=== PATIENT | male | born 1990 | race Caucasian/White ===

== ENCOUNTER 2018-09-23 09:30 | Emergency (ER) | payer MEDICARE, OTHER ==
[~2018-09-23] VITALS: Ht 172.7 cm; Wt 81.8 kg
[2018-09-23] MEDS ORDERED: LIDOCAINE/PF 1% 2 ML VIAL IM ONE (10:15)
[2018-09-23] MEDS ORDERED: CefTRIAXone SODIUM 1 GM/VIAL IM ONE (10:15)
[2018-09-23] MEDS ORDERED: AZITHROMYCIN 250 MG TABLET PO ONE (10:15)
[2018-09-23 13:20] VITALS: BP 120/41
== END 2018-09-23 13:21 | disposition home or self-care (01) ==
LOC: EMS 09:31
DX: A57 Chancroid (principal); N34.2 Other urethritis
CPT/HCPCS: 96372; 99283; J0696; J3490

== ENCOUNTER 2019-04-04 21:17 | Emergency (ER) | payer MEDICARE, OTHER ==
[~2019-04-04] VITALS: Ht 175.3 cm; Wt 81.8 kg
[2019-04-04] MEDS ORDERED: SILVER SULFADIAZINE 1% 25 GM CREAM TP ONE (23:00)
[2019-04-04] MEDS ORDERED: SULFAMETHOX/TRIMETH DS 800-160 MG/TABLET PO ONE (23:30)
[2019-04-04 23:35] VITALS: BP 135/64
== END 2019-04-05 00:17 | disposition home or self-care (01) ==
LOC: EMS 21:19
DX: L55.1 Sunburn of second degree (principal); F15.90 Other stimulant use, unspecified, uncomplicated
CPT/HCPCS: 16020

== ENCOUNTER 2019-09-22 11:57 | Emergency (ER) | payer MEDICARE, OTHER ==
[~2019-09-22] VITALS: Ht 177.8 cm; Wt 180.0 kg
[2019-09-22] MEDS ORDERED: CefTRIAXone SODIUM 1 GM/VIAL IM ONE (14:15)
[2019-09-22] MEDS ORDERED: LIDOCAINE/PF 1% 2 ML VIAL IM ONE (14:15)
[2019-09-22] MEDS ORDERED: IBUPROFEN 800 MG TABLET PO ONE (14:15)
[2019-09-22] MEDS ORDERED: SULFAMETHOX/TRIMETH DS 800-160 MG/TABLET PO ONE (14:15)
[2019-09-22 16:04] VITALS: BP 144/84
== END 2019-09-22 16:17 | disposition home or self-care (01) ==
LOC: EMS 11:58
DX: L02.512 Cutaneous abscess of left hand (principal); F11.90 Opioid use, unspecified, uncomplicated; F15.90 Other stimulant use, unspecified, uncomplicated; F17.210 Nicotine dependence, cigarettes, uncomplicated
CPT/HCPCS: 96372; 99283; 99406; J0696; J3490

== ENCOUNTER 2019-11-01 00:05 | Emergency (ER) | payer MEDICARE, OTHER ==
[~2019-11-01] VITALS: Ht 177.8 cm; Wt 77.3 kg
[2019-11-01] MEDS ORDERED: LIDOCAINE 1% 10 ML VIAL INJ ONE (03:00)
[2019-11-01] MEDS ORDERED: POVIDONE-IODINE 10% 120 ML SOLUTION TP ONE (03:03)
[2019-11-01 04:00] VITALS: BP 123/72
[2019-11-01] MEDS ORDERED: SULFAMETHOX/TRIMETH DS 800-160 MG/TABLET PO ONE (04:00)
[2019-11-01] MEDS ORDERED: PERTUSS(ACELL),DIPH,TET VAC/PF 0.5 ML VIAL IM ONE (04:00)
[2019-11-01] MEDS ORDERED: CEPHALEXIN MONOHYDRATE 500 MG CAPSULE PO ONE (04:00)
== END 2019-11-01 04:13 | disposition home or self-care (01) ==
LOC: EMS 00:07
DX: L02.413 Cutaneous abscess of right upper limb (principal); F11.90 Opioid use, unspecified, uncomplicated; F17.210 Nicotine dependence, cigarettes, uncomplicated; F15.90 Other stimulant use, unspecified, uncomplicated; F19.10 Other psychoactive substance abuse, uncomplicated; Z98.890 Other specified postprocedural states
CPT/HCPCS: 10060; 87070; 87077; 87186; 87205; 99283; J3490

== ENCOUNTER 2021-05-04 05:43 | Emergency (ER) | payer MEDICARE, OTHER ==
[~2021-05-04] VITALS: Ht 175.3 cm; Wt 81.8 kg
[2021-05-04 06:15] VITALS: BP 139/81
[2021-05-04] MEDS ORDERED: POVIDONE-IODINE 10% 120 ML SOLUTION TP ONE (06:15)
[2021-05-04] MEDS ORDERED: BUPIVACAINE HCL/PF 0.25% 10 ML VIAL SQ ONE (06:15)
== END 2021-05-04 06:59 | disposition home or self-care (01) ==
LOC: EMS 05:44
DX: L02.31 Cutaneous abscess of buttock (principal); F17.210 Nicotine dependence, cigarettes, uncomplicated; F15.90 Other stimulant use, unspecified, uncomplicated; F11.90 Opioid use, unspecified, uncomplicated
CPT/HCPCS: 10060; 99283; J3490